=== PATIENT | female | born 1960 | race Caucasian/White ===

== ENCOUNTER 2023-03-29 09:56 | Day surgery (SDC) | payer OTHER ==
[~2023-03-29] VITALS: Ht 165.1 cm; Wt 89.8 kg
[2023-03-29] MEDS ORDERED: fentaNYL citrate 0.05 MG/ML VIAL ONE (13:38)
[2023-03-29] MEDS ORDERED: MIDAZOLAM 2 MG/2 ML VIAL ONE (13:39)
[2023-03-29] MEDS ORDERED: LIDOCAINE 2% 100 MG/5 ML UJET TP ONE (13:39)
[2023-03-29] MEDS ORDERED: MIDAZOLAM 2 MG/2 ML VIAL IVP ONE (14:55)
[2023-03-29] MEDS ORDERED: fentaNYL citrate 0.05 MG/ML VIAL IVP ONE (14:55)
== END 2023-03-29 14:58 | disposition home or self-care (01) ==
LOC: MOR 09:56 → MMU 11:20 → MOR 14:58
PROVIDERS: ATTEND Internal Medicine Gastroenterology
DX: Z12.11 Encounter for screening for malignant neoplasm of colon (principal); K57.30 Diverticulosis of large intestine without perforation or abscess without bleeding; K31.89 Other diseases of stomach and duodenum; K21.9 Gastro-esophageal reflux disease without esophagitis; J45.909 Unspecified asthma, uncomplicated; Z79.899 Other long term (current) drug therapy
CPT/HCPCS: 36415; 43239; 45378; 86677; J2250; J3010